=== PATIENT | male | born 1945 | race Caucasian/White ===

== ENCOUNTER 2021-10-12 05:40 | Day surgery (SDC) | payer MEDICARE, BC ==
[~2021-10-12] VITALS: Ht 167.6 cm; Wt 92.0 kg
[~2021-10-12 05:40] MED LIST: 24 HOUR ALLERG9.9 ML; BISOPROLOL FUMAR5 MG PO; CAL MAG ZINC +1 EACH PO; CHOLEST CARE500 MG PO; COQMAX UBIQUIN200 MG PO; DESOXIMETASONE15 G3; DIOVAN160 MG PO; FLOMAX0.4 MG PO; GEMTESA75 MG PO; JANUVIA50 MG PO; KLOR-CON 1010 MEQ PO; LOVASTATIN10 MG PO; MELATONIN3 MG PO; MEN'S MULTIVIT1 EACH PO; OMEPRAZOLE20 M2 PO; POLYETHYLENE GL17 GM PO; PROSCAR5 MG PO; TURMERIC 450-51 EACH PO; VERAPAMIL ER240 MG PO; VITAMIN D3125 MC2 PO; ZYRTEC10 MG PO
--- NOTE | 2021-10-12 06:20 | NUR ---
PT ARRIVED FOR TRUP. PT DENIES PAIN AND NAUSEA AT THIS TIME. HEART RATE NOTE TO BE REGULAR BUT IN THE 40'S, XUAN QUISPE, UPDATED. INTAKE ASSESSMENT DONE. EXTENSIVE EDUCATION DONE WITH PT REGARDING PROCEEDURE, DISCHARGE INSTRUCTIONS, AND WHAT TO EXPECT OVER THE NEXT DAY. PT VERBALIZES UNDERSTANDING AND STATES HIS QUESTIONS HAVE BEEN ANSWERED. IV STARTED PER PROTOCOL, BRISK BLOOD RETURN NOTED. BLOOD SUGAR 94, OPTICS ENGINEER AWARE. NO ADDITONAL NEEDS AT THIS TIME. CALL LIGHT WITHIN REACH.
--- NOTE | 2021-10-12 06:55 | NUR ---
XUAN QUISPE, AND DR ZAMBRANO TO BEDSIDE TO REVIEW CASE WITH PT. PT VERBALIZES UNDERSTANDING AND STATES HIS QUESTIONS HAVE BEEN ANSWERED. REPORT GIVEN ARIANNA SOLIZ. PT TO OR.
--- NOTE | 2021-10-12 11:25 | NUR ---
PT ARRIVED FROM PACU. ADDMITTED TO MED/SURG AT THIS TIME WITH THIS RN CARING FOR PT UNDER MED/SURG STANDTADS OF CARE UNTIL PTS ROOM IS READY. REPORT RECEIVED FROM ARIANNA BINGHAM. PT REPORTS 9/10 PAIN AND STATES "SOME SUGAR WILL HELP." PAIN SCALE EDUCATION DONE WITH PT AND PT REPORTS 8/10 PAIN "RIGHT IN MY PENIS." PT DESCRIBES PAIN "LIKE A NEEDLE." SEE MAR FOR MEDICATION GIVEN. PT DENIES NAUSEA AND REQUESTS FOOD. PUDDING PROVIDED. PT TOELRATS WELL. COFFE AND TEA PROVIDED WELL PER PT REQUEST. PT TOERLATING WELL. PT ALERT AND ORIENTED TO ALL. HEART TONES REGULAR, REMAINS IN BRIAN 50'S, PT REPORTS THIS IS BASELINE. LUNG SOUNDS CLEAR. BOWEL TONES ACTIVE. ABDOMEN SOFT AND NON TENDER. SCD'S REMAIN IN PLACE. [address] WAY JEROME CATHETER REMAINS IN PLACE. BLADDER IRRIGATION CLAMPED AT THIS TIME. LIGHT CLEAR YELLOW URINE NOTED IN JEROME CATHETER BAG AT THIS TIME. NO DRAINAGE NOTED FROM PENIS. NO ADDITONAL NEEDS AT THIS TIME. CALL LIGHT WIHTIN REACH. BED RAILS UP.
--- NOTE | 2021-10-12 11:52 | NUR ---
10/12/21 1152 Sheets,Cyn 7102 PT ARRIVED TO PACU ON 10 VIA MASK, PT STARTS MOVING IN BED AND REPORTS TO NEED TO VOID. JEROME PLACED TO GRAVITY ON SIDE OF BED, DRAINING. CBG [id number] PT PULLS MASK OFF AND REPORTS TO NEED TO VOID EDUCATION GIVEN. HOB INCREASED SLIGHTLY. VSS. LIGHT PINK TO CLEAR AND DRAINING WNL. 1007 O2 SAT DECREASED TO 86% AND 2L NC PLACED. RN ENCOURAGING DEEP BREATHING. O2 INCREASED TO MID 90S. PT REPORTS 9/10 PAIN, PT EASILY FALLS BACK TO SLEEP AND PERIOD OF APNEA NOTED. PT WAKES TO TACTILE STIMULI AND DEEP BREATHES WHEN AWAKE. 1016 PT WAKES OFF AND ON AND MOANING IN PAIN, PT REPORTS "WHY DOES IT HURT SO MUCH, I FEEL LIKE I NEED TO PEE." EDUCATION GIVEN ON JEROME AND SURGERY. PT DENIES PAIN IN ABD BUT ONLY IN URTHERA. CBI WNL AND DECREASED IN FLOW RATE DUE TO OUTPUT. 1030 PT CONTINUES TO SLEEP OFF AND ON, PT REPORTS PAIN IS "BETTER" BUT STILL 8/10. PERIODS OF APNEA NOTED WHEN ASLEEP, RN CONTINUES TO WAKE PT AND ENCOURAGES DEEP BREATHING. 1041 SPORTS LEADERSHIP INSTRUCTOR CALLED AND UNDATED. NEW ORDER RECEIVED. HOB INCREASED AND PT SIPPING COFFEE PER REQUEST. 1056 IV PAIN MEDICATION STARTED PER EMAR. 1115 PT REPORTS PAIN IS "BETTER", PT IS MORE AWAKE AND ABLE TO MAINTAIN O2 SAT ON 2L. PT FALLS ASLEEP EASILY AND PLAN OF CARE DISCISSED. 1130 PT RETURNED TO DS AND REPORT TO DS RN. CBI INPUT 850 AND OUTPUT 1050.
--- NOTE | 2021-10-12 12:09 | OR ---
[facility] [address] [place], [place] [address] Signed DATE OF OPERATION: 10/12/2021 SURGEON: Chris Zambrano MD PREOPERATIVE DIAGNOSES: 1. BPH with lower urinary tract symptoms. 2. Urinary urgency and frequency. 3. Status post prior TURP in 2005. POSTOPERATIVE DIAGNOSES: 1. BPH with lower urinary tract symptoms. 2. Urinary urgency and frequency. 3. Status post prior TURP in 2005. NAMES OF PROCEDURES: 1. Diagnostic cystoscopy. 2. Urethral dilation using Dora sounds from 16-Turkish to 28-Turkish. 3. Transurethral resection of the prostate. ANESTHESIA: General. ESTIMATED BLOOD LOSS: 50 mL. COMPLICATIONS: None. SPECIMENS: Transurethrally resected prostate chips sent to pathology for evaluation. DRAINS: A 22-Turkish three-way Ritter catheter, connected to continuous bladder irrigation. INDICATIONS FOR PROCEDURE: Black is a very pleasant 76-year-old gentleman with a longstanding history of BPH with LUTS. His previous transurethral resection of the prostate took place in 2005. He was under good control for a solid decade or so and then slowly progressively required alpha ronaldo and PDE5 inhibitor therapy. He presented to me earlier this year for the 1st time with complaints of a weak force of stream, nocturia as well as severe urgency and Electronically Signed By: CHRIS ZAMBRANO MD 10/12/21 1209 PATIENT NAME: BLACK ZHOU OPERATIVE REPORT DATE OF : 41 REPORT #: [id number] PHYSICIAN: CHRIS ZAMBRANO MD PCP: SAVANNAH DAVEY NP REPORT IS CONFIDENTIAL AND NOT TO BE RELEASED WITHOUT AUTHORIZATION [facility] [address] [place], [place] [address] Signed frequency symptoms. He underwent diagnostic cystoscopy which revealed relatively open bladder neck, however, he had moderate to severe lateral lobe hypertrophy. He presents today to undergo treatment in the form of transurethral resection of the prostate. OPERATIVE FINDINGS: 1. Digital rectal examination reveals a 55 g gland that is soft, smooth and symmetric with no focal nodules. 2. Diagnostic cystoscopy reveals no evidence of any suspicious masses, lesions, or stones. Bilateral ureteral orifices are in their normal anatomic location. There is no significant median lobe present. Again, there is moderate severe lateral lobe hypertrophy noted on ureteroscopy. No evidence of any urethral stricture or stenosis. 3. The patient's urethral meatus was dilated using Dora sounds from 16-Turkish to 28-Turkish without incident. 4. The patient's lateral lobes were resected transurethrally using a bipolar device with a 24-Turkish loop. Resection was performed to the level of the verumontanum as per protocol. I also did resect the bladder neck a bit as it was somewhat elevated. At the end of the procedure, I evaluated the bilateral ureteral orifices and there was no evidence of damage to the UOs after resection. 5. A 22-Turkish three-way Ritter catheter was inserted and connected to continuous bladder irrigation at the end of the procedure. DESCRIPTION OF PROCEDURE: After informed consent was obtained, the patient was taken back to the operating room. He was transferred from the [facility] to the operating room table, where general anesthesia was induced. He was placed in the dorsal lithotomy position and his genitalia were prepped and draped in a standard sterile fashion. A digital rectal examination was then performed. Please see above findings. Using a 30-degree lens on a 22.5-Turkish introducer, rigid cystoscope was inserted through his urethra and into the bladder under direct visualization. Panendoscopic views of the bladder were then obtained. Please see above findings. The cystoscope was then removed and the patient's urethral meatus was then dilated from 16-Turkish to 28-Turkish using Rowan sounds without difficulty. A 26-Turkish sheath was then inserted into the patient's urethra using a visual obturator. Prior to this, 60 mL of lubrication were injected into urethra to help prevent future urethral stenosis related to the TURP. With the 26-Turkish sheath, I then removed the visual obturator and added the resectoscope with a 24-Turkish bipolar loop. I resected 1st the left lateral lobe of the prostate. There was a good deal of bleeding with each resection using the loop. This did add some difficulty to the procedure. I resected the left lateral lobe as far down as I could towards the capsule. The same was performed on the right side. Again with each swipe, there was some significant bleeding that required immediate cauterization in order to maintain visualization. I then resected some of the bladder neck, particularly both the anterior and posterior part of the bladder neck. Hemostasis was achieved and maintained using the bipolar loop. Electronically Signed By: CHRIS ZAMBRANO MD 10/12/21 1209 PATIENT NAME: BLACK ZHOU OPERATIVE REPORT DATE OF : 41 REPORT #: [id number] PHYSICIAN: CHRIS ZAMBRANO MD PCP: SAVANNAH DAVEY NP REPORT IS CONFIDENTIAL AND NOT TO BE RELEASED WITHOUT AUTHORIZATION [address] [address] Signed Towards the end of the procedure, I did switch out the loop for the button to smooth the prostatic urethra out and for additional cauterization. Again, the resection was performed to the level of verumontanum. A Deepak syringe was used to irrigate chips from the bladder multiple times throughout the procedure. By the end of the procedure, all of the prostate chips had been successfully removed from the bladder, and hemostasis was achieved and a new channel had been created from bladder neck to verumontanum. The resectoscope was removed leaving the sheath in place. I inserted a Sensor wire through the sheath and into the patient's bladder. The sheath was then removed fully intact. Over the wire, I passed a 22-Turkish three-way Ritter catheter into the patient's bladder. The catheter passed easily and the Sensor wire was then removed. 30 mL of water was instilled into the catheter balloon. The Ritter catheter was then manually irrigated to confirm adequate placement. The catheter was then connected to continuous bladder irrigation. The procedure was then terminated. The patient tolerated the procedure well without any complication. He will now be transferred to the postanesthesia care unit in stable condition. DISPOSITION: I discussed the details of today's procedure with the patient's and answered all of her questions. He does reportedly have a history of constipation, so I made it clear to her that he needs to go on either MiraLAX or Senokot-S or some significant bowel regimen to avoid him bearing down too much to poop as this would likely promote gross hematuria. He will be sent home today with Levaquin 500 mg p.o. daily for a total of 7 days along with oxycodone 5 mg one tablet p.o. q. 6 hours p.r.n. pain, dispense #20. He will be scheduled return to clinic this October 15, to undergo a voiding trial with our Urology nurse. Chris Zambrano MD AR/MODL /[id number] Copies: ~ Electronically Signed By: CHRIS ZAMBRANO MD 10/12/21 1209 PATIENT NAME: BLACK ZHOU Daniela OPERATIVE REPORT DATE OF : 41 REPORT #: [id number] PHYSICIAN: CHRIS ZAMBRANO MD PCP: SAVANNAH DAVEY NP REPORT IS CONFIDENTIAL AND NOT TO BE RELEASED WITHOUT AUTHORIZATION
--- NOTE | 2021-10-12 12:36 | NUR ---
VITALS AND ASSESSMENT DUE. PT RESTING IN BED, WATCHING TV, EATING LUNCH. PT REPORTS PAIN AT 5/10 AND STATES "I'M COMFORTABLE JUST A LITTLE ACHING." PT DENEIS NEED FOR ADDITIONAL PAIN MEDICATION AT THIS TIME.3 WAY BALDDER IRRIGATION REMAINS CLAMPED. LIGHT PINK,NEAR YELLOW URINE NOTED IN CATETER BAG. NO DRAINAGE NOTED FROM MEATUS. ABDOMEN SOFT AND NON TENDER. PT DENIES ADDITIONAL NEEDS AT THIS TIME. DR. ZAMBRANO STATES TO PLACE CPAP ORDER FOR PT TONIGHT AND TO GIVEN 0900 DOES OF PANTOPRAZOLE. PHARMACY CALLED, MEDICATION GIVEN. NO ADDITONAL NEEDS. CALL LIGHT WITHIN REACH. BED RAILS UP.
--- NOTE | 2021-10-12 12:54 | NUR ---
GELA, PTS , CALLED AND UPDATED ON PT STATUS AND PLAN OF CARE. GELA VERBALIZES UNDERSTANDING AND STATES HER QUESTIONS HAVE BEEN ANSWERED.
--- NOTE | 2021-10-12 13:40 | NUR ---
VITALS AND ASSESSMENT DUE. PT FINISHED WITH LUNCH, PT DENIES NASUEA AND STATES LUNCH WAS "ELENA GOOD." PT REPORTS PAIN AT 5/10 AND STATES HE IS COMFORTABLE AT THIS TIME STATING "I COULD LYE BACK AND FALL ASLEEP RIGHT NOW." PT DENIES NEED FOR ADDITIONAL PAIN MEDICATION. PT REMAINS ALERT AND ORIENTED. LUNG SOUNDS CLEAR. HEART TONES REGULAR WITH ONGOING BRADYCARDIA. ABDOMEN SOFT AND NON TENDER. VERY LIGHT PINK TO YELLOW URINE NOTED IN JEROME BAG. [address] WAY BLADDER IRRIGATION REMAINS CLAMPED. SMALL AMOUNT OF RED DRAINAGE NOTED FROM MEATUS. SCD'S REMAIN IN PLACE. NO ADDITIONAL REQUESTS OR COMPLAINTS. CALL LIGHT WITHIN [facility]. BED RAILS UP.
--- NOTE | 2021-10-12 13:50 | NUR ---
REPORT GIVEN TO ARIANNA TOVAR ON MED/SURG WHO IS ASSUMING CARE OF PT. PT TRANSFERED TO MED/SURG. NO ADDITIONAL NEEDS. CALL LIGHT WITHIN REACH. DYLON TOVAR RN AT BEDSIDE.
--- NOTE | 2021-10-12 14:13 | NUR ---
REPORT RECIEVED FROM ARIANNA CLAY. PT TALKATIVE AND ASKS APPROP. QUESTIONS REGARDING CARE. GIVEN CALL LIGHT AND REMOTE FOR TV. CBI CONTINUES TO BE CLAMPED WITH LIGHT RED URINE IN JEROME. DENIES PAIN.
--- NOTE | 2021-10-12 16:13 | NUR ---
PT RESTING IN BED. ASKED FOR A GATORADE ZERO, CALLED KITCHEN. HIS THROAT IS SORE FROM SURGERY TODAY. URINE LIGHT YELLOW WITH SMALL STREAK OF RED.
[2021-10-12] MEDS ORDERED: OMEPRAZOLE20 MG PO (16:52)
[2021-10-12] MEDS ORDERED: FUROSEMIDE20 MG PO (16:55)
[2021-10-12] MEDS ORDERED: FLUTICASONE PRO16 GM NAS (16:57)
--- NOTE | 2021-10-12 17:10 | NUR ---
PT IN BED. VITALS AND I'S AND O'S TAKEN. PT REQ GATORADE. DIETARY CALLED. NO FURTHER NEEDS. CALL LIGHT WITHIN REACH.
--- NOTE | 2021-10-12 17:22 | NUR ---
VITALS TAKEN AND JEROME EMPTIED. NURSE NOTIFIED OF BP. NO FURTHER NEEDS CALL LIGHT WITHIN REACH.
--- NOTE | 2021-10-12 17:28 | NUR ---
PT REFUSED ONE UNIT OF INSULIN FOR BS OF 160. STATES HE TAKES JANUVIA AT HOME AND WILL TAKE IT TOMORROW. HAS NEVER TAKEN INSULIN. EDUCATED ON JEROME AND FOLLOW UP APPT.
--- NOTE | 2021-10-12 18:30 | NUR ---
DEO ARAUJO IN ROOM TO GO OVER MED REC.
[2021-10-12] MEDS ORDERED: PROBIOTIC1 EAC2 PO (18:53)
[2021-10-12] MEDS ORDERED: ZINC30 MG PO (18:53)
--- NOTE | 2021-10-12 18:54 | NUR ---
MED REC COMPLETE
--- NOTE | 2021-10-12 19:30 | NUR ---
RECEIVED REPORT FROM ARIANNA TOVAR. pt RESTING IN BED. CBI CLAMPED. URINE PINK. pt DENIES PAIN AT THIS TIME. WHITEBOARD UPDATED. CALL LIGHT WITHIN REACH.
--- NOTE | 2021-10-12 19:38 | NUR ---
pt EVALUATED BY RT, PER RT pt DOES NOT ALWAYS WEAR CPAP AT HOME AND DECLINES WEARING A HOSPITAL UNIT TONIGHT.
--- NOTE | 2021-10-12 21:00 | NUR ---
IN TO DO ASSESSMENT AND MEDICATIONS. pt HAD A LOT OF QUESTIONS ABOUT PLAN OF CARE AFTER DISCHARGE AND MEDICATIONS. pt AGREED TO TAKE BLOOD PRESSURE MEDICATIONS. CONTINUED TO GET BLOOD PRESSURE AND BLOOD SUGAR CONFUSED. pt REFUSED INSULIN "I NEVER TAKE THAT STUFF AND I DON'T WANT IT" BLOOD SUGAR HAS REMAINED STABLE SINCE LAST CHECKED. JEROME OUTPUT LIGHT PINK. JEROME CARE DONE, INSTRUCTED pt ON PROPER CARE. pt WILL NEED EDUCATION REINFORCED. PROVIDED WITH BED REMOTE. NO FURTHER REQUESTS. CALL LIGHT WITHIN REACH.
--- NOTE | 2021-10-12 23:43 | NUR ---
ROUNDED ON pt. RESTING IN BED WITH EYES CLOSED, RESPIRATIONS REGULAR AND UNLABORED. RATE 16. CALL LIGHT WITHIN REACH.
--- NOTE | 2021-10-13 00:30 | NUR ---
IV PUMP BEEPING. MARCO ANTONIO KELLER HUNG A NEW BAG OF FLUIDS AND ANSWERED MULTIPLE QUESTIONS ABOUT HIS CATHETER. CALL LIGHT WITHIN REACH.
--- NOTE | 2021-10-13 02:47 | NUR ---
IN TO DO ASSESSMENT AND VITALS. pt AWAKE IN BED. IMMEDIATELY STARTED ASKING QUESTIONS ABOUT DISCHARGE, HE ANSWERED MOST QUESTIONS HIMSELF. HE WAS IMPULSIVE, ATTEMPTING TO STAND FOR BLOOD PRESSURE, REQUIRED VERBAL CUES TO STAY IN BED AND HAVE VITALS DONE. CBI REMAINS CLAMPED, URINE VERY LIGHT PINK IN COLOR. DENIES PAIN. NO CHANGES IN ASSESSMENT. pt REASSURED AND QUESTIONS ABOUT DISCHARGE ANSWERED. pt RESTING IN BED. LIGHTS OFF. CALL LIGHT WITHIN REACH.
--- NOTE | 2021-10-13 06:58 | NUR ---
ASSESSED URINE IN JEROME, YELLOW AND DILUTE. pt REASSURED THAT BREAKFAST WILL COME.
--- NOTE | 2021-10-13 07:30 | NUR ---
PT IN BED. NURSE IN ROOM TALKING WITH PT. NO FURTHER NEEDS. CALL LIGHT WITHIN REACH.
--- NOTE | 2021-10-13 08:48 | NUR ---
Scheduled medications administered and assessment complete. IV ABX infusing. CBI removed. Pt educated about kee care at home. Many questions asked. Stat lock replaced, pt provided with extra supplies for home care.
[2021-10-13] MEDS ORDERED: OXYCODONE HCL5 MG PO (09:13)
[2021-10-13] MEDS ORDERED: LEVOFLOXACIN500 MG PO (09:14)
--- NOTE | 2021-10-13 09:35 | NUR ---
IV ABX complete and IV removed WNL. Pt's questions answered.
--- NOTE | 2021-10-13 11:39 | PATH ---
[facility] [address] [facility] [place] [place] [address] Signed SPECIMEN(S): A PROSTATE CHIPS SPECIMEN SOURCE: A. PROSTATE CHIPS CLINICAL HISTORY: BPH with LUTS; obstructive reflux uropathy; TURP. FINAL PATHOLOGIC DIAGNOSIS: Prostate chips, TUR: - Benign prostatic glandular tissue with focal stromal and glandular hyperplasia. - Focal chronic stromal and glandular inflammation. - Benign urothelium. JVR:[id number] MICROSCOPIC EXAMINATION: Histologic sections of all submitted blocks are examined by light microscopy. These findings, together with the gross examination, support the pathologic diagnosis. GROSS DESCRIPTION: The specimen, labeled "BJ, A," and designated on the requisition "prostate chips," is received in formalin and consists of multiple fragments of pink-liriano, soft to rubbery tissue (22 g, 7.5 x 5.0 x 2.5 cm in aggregate). Approximately 68% of the specimen is submitted in cassettes (A1-A10). AC (under the direct supervision of a pathologist) The Gross Description was prepared using a voice recognition system. The report was reviewed for accuracy; however, sound-alike word errors, addition and/or deletions may occur. If there is any question about this report, please contact Client Services. PERFORMING LABORATORY: The technical component was performed by [facility], [address] [place] [id number] (CLIA# [id number]). Professional interpretation was performed by [facility] - [facility], [address] [place] [address], [place] [address] (CLIA#: [id number]). Diagnostician: Ajit Scott MD Pathologist PATIENT NAME: BLACK ZHOU PATHOLOGY DATE OF : 41 REPORT #: [id number] PHYSICIAN: [facility]OLOG[facility] PCP: SAVANNAH DAVEY NP REPORT IS CONFIDENTIAL AND NOT TO BE RELEASED WITHOUT AUTHORIZATION [facility] [address] [place] [id number] Signed Electronically Signed 10/13/2021 Copies: ~ PATIENT NAME: BLACK ZHOU PATHOLOGY DATE OF : 41 REPORT #: [id number] PHYSICIAN: JOHN PATHOLOGY PCP: SAVANNAH DAVEY EXERCISE RIDER REPORT IS CONFIDENTIAL AND NOT TO BE RELEASED WITHOUT AUTHORIZATION
--- NOTE | 2021-10-13 11:39 | NUR ---
Pt discharged home with his . Education provided to patient and he verbalizes understanding. All questions answered. IV site WNL after removal. Ritter cath intact and pt educated on home care. Sent with supplies. F/U appointment made and all paperwork given. VSS. A+O. Stable condition with no needs.
== END 2021-10-13 11:05 | disposition home or self-care (01) ==
LOC: DS 05:40 → MS 14:03 → DS 10-13 11:05
PROVIDERS: ATTEND Urology
PROC: 0VB08ZZ Excision of Prostate, Via Natural or Artificial Opening Endoscopic (ICD-10-PCS; principal; 2021-10-12 07:30)
DX: N40.1 Benign prostatic hyperplasia with lower urinary tract symptoms (principal); N41.1 Chronic prostatitis; R39.15 Urgency of urination; R35.0 Frequency of micturition; I10 Essential (primary) hypertension; E11.9 Type 2 diabetes mellitus without complications; K59.09 Other constipation; N13.8 Other obstructive and reflux uropathy; N32.81 Overactive bladder
CPT/HCPCS: C1769; J0131; J0461; J0690; J0696; J1100; J1885; J2250; J2405; J2704; J2765; J3010; J7121